=== PATIENT | male | born 1980 | race Caucasian/White ===

== ENCOUNTER 2020-10-02 22:44 | Emergency (ER) | payer BC ==
[~2020-10-02 22:44] MED LIST: AUGMENTIN 875-1 EACH PO; PREDNISONE 20 M20 MG GT; VALTREX1000 MG PO
[2020-10-02 23:23] LABS: HEMOGLOBIN 15.7 gm/dl (14.0-17.5); RED BLOOD COUNT 5.28 M/UL (4.20-5.50); WHITE BLOOD COUNT 8.1 K/UL (4.5-11.0)
[2020-10-02 23:38] LABS: BUN/CREATININE RATIO 16 (0-10)
[2020-10-03] MEDS ORDERED: PROTONIX40 MG PO (02:41)
== END 2020-10-03 03:10 | disposition home or self-care (01) ==
LOC: ER1 22:44
PROVIDERS: Physician Assistant
DX: K21.9 Gastro-esophageal reflux disease without esophagitis (principal); E11.9 Type 2 diabetes mellitus without complications; I10 Essential (primary) hypertension; M10.9 Gout, unspecified
CPT/HCPCS: 71045; 80053; 82550; 82553; 82962; 83690; 83874; 84484; 85025; 85379; 93005; 96374; 96375; 99285; C9113; J2060

== ENCOUNTER 2020-10-31 17:04 | Emergency (ER) | payer BC ==
[~2020-10-31 17:04] MED LIST changes: +PROTONIX40 MG PO
[2020-10-31 21:51] LABS: RED BLOOD COUNT 5.32 M/UL (4.20-5.50); WHITE BLOOD COUNT 11.3 K/UL (4.5-11.0)
[2020-10-31 22:49] LABS: BUN/CREATININE RATIO 16 (0-10)
[2020-10-31] MEDS ORDERED: CEPHALEXIN500 MG PO (23:46)
[2020-10-31] MEDS ORDERED: INDOMETHACIN50 MG PO (23:46)
== END 2020-11-01 00:18 | disposition home or self-care (01) ==
LOC: ER1 17:04
PROVIDERS: Physician Assistant
DX: L03.113 Cellulitis of right upper limb (principal); M10.9 Gout, unspecified; E11.9 Type 2 diabetes mellitus without complications; I10 Essential (primary) hypertension; Z79.01 Long term (current) use of anticoagulants; Z79.84 Long term (current) use of oral hypoglycemic drugs; Z79.899 Other long term (current) drug therapy
CPT/HCPCS: 73080; 80053; 84550; 85025; 85652; 86140; 87040; 96374; 99283; J1885

== ENCOUNTER → 2021-09-18 | Outpatient (CLI) | payer BC ==
[~2021-09-18] MED LIST changes: +CEPHALEXIN500 MG PO; +INDOMETHACIN50 MG PO
== END ==
LOC: EXRD 13:00
DX: N17.9 Acute kidney failure, unspecified (principal)
CPT/HCPCS: 76775

== ENCOUNTER 2021-10-02 05:32 | Emergency (ER) | payer SELFPAY | END 2021-10-02 07:20 | disposition home or self-care (01) | LOC: ER1 05:32 | DX: S83.92XA Sprain of unspecified site of left knee, initial encounter (principal); E11.9 Type 2 diabetes mellitus without complications; I10 Essential (primary) hypertension; X50.9XXA Other and unspecified overexertion or strenuous movements or postures, initial encounter | CPT/HCPCS: 73564; 96372; 99283; J1885 ==

== ENCOUNTER → 2021-11-14 | Outpatient (CLI) | payer OTHER | LOC: KOH-I 11:13 | DX: M23.92 Unspecified internal derangement of left knee (principal); M25.462 Effusion, left knee | CPT/HCPCS: 73721 ==